=== PATIENT | male | born 2000 | race Caucasian/White ===

== ENCOUNTER 2025-09-04 00:55 | Emergency (ER) | payer BC ==
[~2025-09-04] VITALS: Ht 190.5 cm; Wt 76.0 kg
[~2025-09-04 00:55] MED LIST: CEFDINIR300 MG PO; ONDANSETRON ODT8 MG PO
[2025-09-04] MEDS ORDERED: MORPHINE SULFATE 4 MG/ML VIAL IV ONE (01:30)
[2025-09-04] MEDS ORDERED: SODIUM CHLORIDE 0.9% 1,000 ML IV ONE (01:30)
[2025-09-04] MEDS ORDERED: KETOROLAC TROMETHAMINE 30 MG/ML VIAL IV ONE ×2 (01:30→03:15)
[2025-09-04 02:01] LABS: BLOOD/HGB, URINE LARGE (Negative); KETONE, URINE NEGATIVE (Negative); LEUK ESTERASE, URINE NEGATIVE (negative); NITRITE, URINE NEGATIVE (negative)
[2025-09-04 02:17] LABS: BACTERIA, URINE 1+ /hpf (negative); CASTS, URINE NONE SEEN \\lpf; CRYSTALS, URINE NONE SEEN (0-1+); EPITHELIAL CELLS, URINE NONE SEEN /lpf (0-1+); REFLEX CULTURE, URINE No (No)
[2025-09-04 02:25] LABS: ALT (SGPT) 45.0 U/L (14-59); AST (SGOT) 20.0 U/L (15-37); GLOMERULAR FILTRATION RATE,EST 121.0 mL/min (>60); PROTEIN, TOTAL 8.5 g/dL (6.4-8.2); UREA NITROGEN 13.0 mg/dL (7-18)
[2025-09-04] MEDS ORDERED: TAMSULOSIN HCL 0.4 MG CAP PO ONE (02:30)
[2025-09-04] MEDS ORDERED: PERCOCET 5-3251 EACH PO (02:45)
[2025-09-04] MEDS ORDERED: CEFDINIR300 MG PO (02:45)
[2025-09-04] MEDS ORDERED: KETOROLAC TROME10 MG PO (02:45)
[2025-09-04] MEDS ORDERED: TAMSULOSIN HCL0.4 MG PO (02:45)
[2025-09-04] MEDS ORDERED: ONDANSETRON ODT8 MG PO (02:48)
[2025-09-04] MEDS ORDERED: OXYCODONE/ACETAMINOPHEN 1 TAB HOME.PACK PO ONE (03:00)
[2025-09-04] MEDS ORDERED: CEFDINIR 300 MG HOME.PACK PO ONE (03:00)
[2025-09-04] MEDS ORDERED: ONDANSETRON 4 MG HOME.PACK SL ONE (03:00)
[2025-09-04 03:46] VITALS: BP 113/71
== END 2025-09-04 03:49 | disposition home or self-care (01) ==
LOC: ED 00:55
PROVIDERS: Family Medicine
DX: N20.0 Calculus of kidney (principal)
CPT/HCPCS: 36415; 74176; 80053; 81001; 83690; 96374; 96375; 99284-25; A9270; J0696; J1885; J2270; J2405; J7030